=== PATIENT | male | born 1960 | race Caucasian/White ===

== ENCOUNTER 2017-12-02 21:57 | Emergency (ER) | payer BC ==
--- NOTE | 2017-12-02 22:24 | ED ---
Abdominal Pain/Male - HPI Summary HPI Summary: A 57 y/o male presents to ED c/o intermittent abdominal pain. Currently the patient is experiencing abdominal pain in the periumbilical region reaching 3/ 10 in severity. In the ED room, the patient has a pulse of 96 BPM, O2 saturation of 94% and blood pressure of 181/120. As per triage, "Pt c/o hernia by his umbilicus. States he was seen by PCP and informed he would be referred to a surgeon. States he has intermittent pain in his abdomen that radiates to his epigastric area". According to the patient, he has a gas-like abdominal pain that starts in his abdomen and radiates to his chest. The pain started Saturday night and all through Saturday. He noted that he didn't do anything on Saturday as it was his rest day. He saw his local PCP today and made an appointment for surgery. Denies any vomiting, but only exhibits pain after eating and nauseous. No other medical problems. PMHx of hip replacement and appendectomy. SHx of no ETOH. - History of Current Complaint Chief Complaint: EDAbdPain Stated Complaint: ABD/CHEST PAIN Time Seen by Provider: 12/02/17 22:22 Hx Obtained From: Patient Onset/Duration: Sudden Onset, Lasting Hours, Still Present Timing: Intermittent Severity Initially: Mild Severity Currently: Mild Pain Intensity: 3 Pain Scale Used: 0-10 Numeric Location: Umbilical Radiates: Yes Radiates to: Chest Character: Other: - Gas-like Aggravating Factor(s): Food - After eating Alleviating Factor(s): Nothing Associated Signs And Symptoms: Positive: Chest Pain, Nausea - Allergies/Home Medications Allergies/Adverse Reactions: Allergies Allergy/AdvReac Type Severity Reaction Status Date / Time No Known Allergies Allergy Verified 12/02/17 22:02 PMH/Surg Hx/FS Hx/Imm Hx Endocrine/Hematology History: Denies: Hx Diabetes Cardiovascular History: Denies: Hx Hypertension - Surgical History Surgery Procedure, Year, and Place: Hip replacement, appendectomy Infectious Disease History: No Infectious Disease History: Denies: Traveled Outside the [place] in Last 30 Days - Family History Known Family History: Positive: Hypertension, Other - Lymph node cancer - Social History Alcohol Use: None Substance Use Type: Reports: None Hx Tobacco Use: No Review of Systems Negative: Fever Positive: Chest Pain - Due to abdominal pain Positive: Abdominal Pain, Nausea. Negative: Vomiting All Other Systems Reviewed And Are Negative: Yes Physical Exam - Summary Physical Exam Summary: VITAL SIGNS: Reviewed. GENERAL: Patient is a well-developed and nourished male who is lying comfortable in the stretcher. Patient is not in any acute respiratory distress. HEAD AND FACE: No signs of trauma. No ecchymosis, hematomas or skull depressions. No sinus tenderness. EYES: PERRLA, EOMI x 2, No injected conjunctiva, no nystagmus. EARS: Hearing grossly intact. Ear canals and tympanic membranes are within normal limits. MOUTH: Oropharynx within normal limits. NECK: Supple, trachea is midline, no adenopathy, no JVD, no carotid bruit, no c- spine tenderness, neck with full ROM. CHEST: Symmetric, no tenderness at palpation LUNGS: Clear to auscultation bilaterally. No wheezing or crackles. CVS: Regular rate and rhythm, S1 and S2 present, no murmurs or gallops appreciated. ABDOMEN: Soft, periumblical tenderness. Abdomen is distended. No rebound no guarding, and no masses palpated. Bowel sounds are normal. Divarication of Recti. EXTREMITIES: FROM in all major joints, no edema, no cyanosis or clubbing. NEURO: Alert and oriented x 3. No acute neurological deficits. Speech is normal and follows commands. SKIN: Dry and warm Triage Information Reviewed: Yes Vital Signs On Initial Exam: Initial Vitals Temp Pulse Resp BP Pulse Ox 97.2 F 104 20 157/82 95 12/02/17 21:59 12/02/17 21:59 12/02/17 21:59 12/02/17 21:59 12/02/17 21:59 Vital Signs Reviewed: Yes Diagnostics - Vital Signs Vital Signs Temp Pulse Resp BP Pulse Ox 12/02/17 21:59 97.2 F 104 20 157/82 95 - Laboratory Result Diagrams: 12/02/17 23:16 12/02/17 23:15 Lab Statement: Any lab studies that have been ordered have been reviewed, and results considered in the medical decision making process. - CT CT A/P CT Interpretation Completed By: Radiologist - 1. No evidence of bowel obstruction. There are diverticular changes involving the colon in which there is some thickening of the wall. This can be seen with chronic diverticulosis. Cannot exclude the possibility of a colitis. No mesenteric inflammation. No evidence of bowel perforation. 2. Patchy infiltration liver with fat. ED physician reviewed this radiology report. Re-Evaluation - Re-Evaluation First Eval Re-Evaluation Time: 02:27 Change: Improved Comment: Patient is feeling much better. Abdominal Pain Fem Course/Dx - Course Course Of Treatment: A 57 y/o male presents to ED c/o intermittent abdominal pain. Currently the patient is experiencing abdominal pain in the periumbilical region reaching 3/10 in severity. In the ED room, the patient has a pulse of 96 BPM, O2 saturation of 94% and blood pressure of 181/120. A CT A/P revealed 1. No evidence of bowel obstruction. There are diverticular changes involving the colon in which there is some thickening of the wall. This can be seen with chronic diverticulosis. Cannot exclude the possibility of a colitis. No mesenteric inflammation. No evidence of bowel perforation. 2. Patchy infiltration liver with fat. UA and blood work was also done. In the ED course, the patient recieved Reglan, Omnipaque. Morphine, Protonix and IV fluids. During reevaluation, the patient indicated that he was feeling much better. Patient will be discharged with a diagnosis of GERD. Patient will be sent home with Protonix. Patient is to follow up with PCP in 1-2 days. Patient is agreeable with this plan. - Diagnoses Provider Diagnoses: GERD (gastroesophageal reflux disease) Discharge - Sign-Out/Discharge Documenting (check all that apply): Patient Departure - DISCHARGE - Discharge Plan Condition: Stable Disposition: HOME Prescriptions: Pantoprazole TAB (NF) [Protonix TAB (NF)] 40 mg PO DAILY #30 tab Patient Education Materials: Gastroesophageal Reflux Disease (ED) Referrals: [facility] [Outside] - 2 Days Additional Instructions: FOLLOW UP WITH PRIMARY [facility]ARE OR [facility] IN 1-2 DAYS. TAKE MEDICATION PRESCRIBED. RETURN TO ED FOR ANY NEW OR WORSENING SYMPTOMS. - Attestation Statements Document Initiated by Jaimeibe: Yes Documenting Scribe: Quinn Titus Provider For Whom Sumit is Documenting (Include Credential): Ricardo Arana Attestation: Quinn Jimenez, scotted for Angela Browning on 12/03/17 at 0232.
[2017-12-02] MEDS ORDERED: NS 0.9% 1000 ML* 1,000 ML IV ONE (22:48)
[2017-12-02] MEDS ORDERED: Metoclopramide IV* 5 MG/ML 2 ML VIAL IV ONE (22:48)
[2017-12-02] MEDS ORDERED: Morphine INJ* 2 MG/ML 1 ML SYRINGE (TWO MG - NEW SYRINGE VERSION) IV ONE (22:48)
[2017-12-02] MEDS ORDERED: Pantoprazole IV* 40 MG IV ONE (22:48)
[2017-12-02 23:29] LABS: ABS Basophils 0.1 10^3/ul (0-0.2); ABS Eosinophils 0.1 10^3/ul (0-0.6); ABS Lymphocytes 2.1 10^3/ul (1.0-4.8); ABS Neutrophils 7.4 10^3/ul (1.5-7.7); ABS Nucleated RBC 0 10^3/ul; Hematocrit 51 % (42-52); Hemoglobin 17.4 g/dl (14.0-18.0); Lymphocyte % 19.9 % (25-47); Mean Corpuscular HGB Conc 34 g/dl (31-36); Mean Corpuscular Hemoglobin 31 pg (27-31); Mean Corpuscular Volume 91 fL (80-94); Mean Platelet Volume 8.5 um3 (7.4-10.4); Nucleated Red Blood Cells % 0.1; Platelet Count 215 10^3/ul (150-450); Red Blood Count 5.58 10^6/ul (4.00-5.40); Red Cell Distribution Width 15 % (10.5-15); White Blood Count 10.8 10^3/ul (3.5-10.8)
[2017-12-02] MEDS ORDERED: Iohexol 300* (CONTRAST) 10 ML SDV IV ONE (23:59)
[2017-12-03 01:16] LABS: Urine Appearance Clear; Urine Blood 1+ (Negative); Urine Color Yellow; Urine Ketones Negative (Negative); Urine Protein Negative (Negative); Urine Red Blood Cell Trace(0-2/hpf) (Absent); Urine Specific Gravity 1.032 (1.010-1.030); Urine Urobilinogen Negative (Negative); Urine White Blood Cell Trace(0-5/hpf) (Absent)
--- NOTE | 2017-12-03 01:48 | RAD ---
EXAM: CT Abdomen and Pelvis With Intravenous Contrast CLINICAL HISTORY: 57 years old, male; Pain; Abdominal pain; Generalized; Prior surgery; Surgery date: 6+ months; Surgery type: Appendectomy, hip replacement; Additional info: Known umbillical hernia, diffused abdominal pain TECHNIQUE: Axial computed tomography images of the abdomen and pelvis with intravenous contrast. All CT scans at this facility use at least one of these dose optimization techniques: automated exposure control; mA and/or kV adjustment per patient size (includes targeted exams where dose is matched to clinical indication); or iterative reconstruction. Coronal and sagittal reformatted images were created and reviewed. CONTRAST: 125 mL of OMNI 300 administered intravenously. COMPARISON: No relevant prior studies available. FINDINGS: Lung bases: Dependent infiltrates which may represent areas of atelectasis and/or scarring. ABDOMEN: Liver: Patchy infiltration of the liver with fat. Much of the right lobe of the liver and portions of the left lobe the liver contains fat. No focal lesion. Gallbladder and bile ducts: Unremarkable. No calcified stones. No ductal dilation. Pancreas: Unremarkable. No mass. No ductal dilation. Spleen: Unremarkable. No splenomegaly. Adrenals: Unremarkable. No mass. Kidneys and ureters: Left renal cortical cysts with a maximum dimension of 2.2 cm. No hydronephrosis. Stomach and bowel: No bowel obstruction. Colonic diverticulosis involving predominantly the sigmoid colon with no clear evidence of acute diverticulitis. There is however thickening of the wall of the proximal sigmoid colon. Surgical clips are located in the tip of the cecum. PELVIS: Appendix: No findings to suggest acute appendicitis. Bladder: Unremarkable. No mass. Reproductive: Unremarkable as visualized. ABDOMEN and PELVIS: Intraperitoneal space: No free abdominal fluid or air. Bones/joints: Left hip arthroplasty. No acute fracture. No dislocation. Soft tissues: Periumbilical hernia containing fat. Vasculature: Atheromatous changes involving abdominal aorta and iliac arteries. No aneurysmal dilatation. Lymph nodes: Unremarkable. No enlarged lymph nodes. IMPRESSION: 1. No evidence of bowel obstruction. There are diverticular changes involving the colon in which there is some thickening of the wall. This can be seen with chronic diverticulosis. Cannot exclude the possibility of a colitis. No mesenteric inflammation. No evidence of bowel perforation. 2. Patchy infiltration liver with fat.
[2017-12-03 02:28] VITALS: BP 146/91
== END 2017-12-03 02:35 | disposition home or self-care (01) ==
LOC: ED 21:57
DX: K21.9 Gastro-esophageal reflux disease without esophagitis (principal); R07.9 Chest pain, unspecified; R11.0 Nausea; R10.9 Unspecified abdominal pain
CPT/HCPCS: 36415; 74177; 80053; 81003; 81015; 82150; 83690; 83735; 85025; 86140; 87086; 96365; 96375; 99283; J2270; J2765; Q9967